=== PATIENT | female | born 1950 | race Caucasian/White ===

== ENCOUNTER → 2016-12-08 | Outpatient (CLI) | payer OTHER, MEDICARE | LOC: FIMAGING 15:23 | PROVIDERS: ATTEND Physician Assistant | DX: M79.605 Pain in left leg (principal) ==

== ENCOUNTER 2017-04-07 16:27 | Emergency (ER) | payer OTHER, MEDICARE ==
[2017-04-07 16:38] VITALS: BP 180/82; PULSE 75; RESP 16; TEMP 98.4; O2SAT 95
--- NOTE | 2017-04-07 17:12 | EDPHY ---
H & P Stated Complaint: sharp abd pain after bending over yesterday Intermittent HPI/ROS: CHIEF COMPLAINT: Right-sided abdominal pain History by patient HISTORY OF PRESENT ILLNESS: 66-year-old woman with a history of hypertension and ulcerative colitis presents complaining of pain in her right upper abdomen/ lower chest which is localized to just below her lower rib in the midclavicular line which began when she was bending over yesterday. She describes the pain as sharp and then as soon as she stood up it resolved. She has had several other episodes related to bending over. This morning she says that she has had a dull ache in her right mid back and again when she bends over she feels it on her right side anteriorly. It is not associated with any nausea, vomiting or change in stools. She has chronic diarrhea related to her ulcerative colitis but there has been no blood in it. There has been no associated fever or chills. She has been eating and drinking without difficulty and had both a normal dinner, normal breakfast and normal lunch today. Eating had no affect on the pain. She denies any trauma to the area or new activity or straining. She said she wanted to be checked out because she is leaving to go to [place] for 1 month in a couple days. She denies any urinary symptoms. She has no prior history of kidney stones. REVIEW OF SYSTEMS: As in HPI, and all other systems reviewed and are negative Source: Patient - Personal History Current Tetanus Diphtheria and Acellular Pertussis (TDAP): Yes - Medical/Surgical History Hx Asthma: No Hx Chronic Respiratory Disease: No Hx Diabetes: No Hx Cardiac Disease: No Hx Renal Disease: No Hx Cirrhosis: No Hx Alcoholism: No Hx HIV/AIDS: No Hx Splenectomy or Spleen Trauma: No Other PMH: hypothyroid. htn. ulcerative coloitis. appy. foot surg. hip replace. hyst - Social History Smoking Status: Never smoked - Physical Exam Exam: General Appearance: Alert, comfortable, well appearing. Eyes: Pupils equal and round, no pallor or injection. Mouth: Mucous membranes moist. Respiratory: Normal, effort, lungs are clear to auscultation. No wheezes, rales or rhonchi. Cardiovascular: Regular rate and rhythm. S1, S2, no murmurs, gallops or rubs appreciated Gastrointestinal: bowel sounds normal, Abdomen is soft and nondistended, localized mild tenderness on the lateral edge of the lower right ribs and area no bigger than a quarter., no masses Back: No CVA tenderness, no bony tenderness, mild lateral rib tenderness Neurological: Awake, alert and oriented x 3, no pronator drift, normal gait, no pronator drift Skin: Warm and dry, no rashes. Musculoskeletal: No deformities or tenderness. Extremities: full range of motion, no edema Psychiatric: Patient has normal affect, there is no agitation. Constitutional: Initial Vital Signs Temperature (C) 36.9 C 04/07/17 16:32 Heart Rate 75 04/07/17 16:32 Respiratory Rate 16 04/07/17 16:32 Blood Pressure 180/82 H 04/07/17 16:32 O2 Sat (%) 95 04/07/17 16:32 O2 Delivery Mode Room Air Allergies/Adverse Reactions: No Known Allergies Allergy (Verified 04/07/17 16:38) Home Medications: Medication Instructions Recorded Balsalazide Disodium [Colazal (RX)] mg PO 10/30/11 Mesalamine [[facility] Suppository 1,000 mg LA HS 04/03/12 (RX)] Amlodipine Besylate 09/20/14 Gabapentin 09/20/14 HYDROCODONE BIT/ACETAMINOPHEN 09/20/14 LEVOTHYROXINE SODIUM 09/20/14 Lisinopril 09/20/14 traZODONE 09/20/14 Baclofen 04/07/17 Medical Decision Making ED Course/Re-evaluation: 66-year-old woman presents with localized right upper quadrant tenderness and pain only when she bends. Exam is notable for very localized tenderness but no evidence of systemic toxicity. Given the fact that there are no associated GI symptoms and the patient is eating and drinking well without fever I doubt this is related to her gallbladder or other intra-abdominal pathology at this time. Urinalysis showed no evidence of blood although this is not a clean-catch patient has no urinary symptoms. I suspect abdominal wall pain and doubt serious surgical pathology. Patient was given reassurance. I am recommending conservative symptomatic treatment at home and return for re-evaluation for any worsening or new symptoms including but not limited to fever, vomiting, inability to eat or drink, persistent pain or other new concerns. Patient understands and is agreeable to this plan. - Data Points Laboratory Results: 04/07/17 17:15 Urine Color YELLOW Urine Appearance HAZY Urine pH 7.0 (5.0-7.5) Ur Specific [place] 1.010 (1.002-1.030) Urine Protein NEGATIVE (NEGATIVE) Urine Ketones NEGATIVE (NEGATIVE) Urine Blood NEGATIVE (NEGATIVE) Urine Nitrate NEGATIVE (NEGATIVE) Urine Bilirubin NEGATIVE (NEGATIVE) Urine Urobilinogen 0.2 EU EU (0.2-1.0) Ur Leukocyte Esterase 2+ H (NEGATIVE) Urine RBC OCCASIONAL /hpf /hpf (0-3) Urine WBC 15-25 /hpf H /hpf (0-3) Ur Epithelial Cells 2+ /lpf H /lpf (NONE-1+) Urine Bacteria 1+ /hpf H /hpf (NONE SEEN) Urine Mucus TRACE /lpf /lpf (NONE-1+) Urine Yeast OCCASIONAL /hpf H /hpf (NONE SEEN) Urine Glucose NEGATIVE (NEGATIVE) Departure - Departure Disposition: Home, Routine, Self-Care Clinical Impression: Abdominal wall pain in right upper quadrant Condition: Good Instructions: Musculoskeletal Pain (ED) Additional Instructions: You were seen by Dr. Lashae Hale today. Please return or be seen by her primary care physician if you develop any nausea , vomiting, loss of appetite, worsening of pain with eating or drinking, fever, severe pain or any worsening or new concerns. Referrals: Quynh Banks MD [Primary Care Provider] - As per Instructions
[2017-04-07 17:18] LABS: COLOR YELLOW; LEUKOCYTE ESTERASE,URINE 2+ (NEGATIVE); NITRITE,URINE NEGATIVE (NEGATIVE)
[2017-04-07 17:28] LABS: BACTERIA 1+ /hpf (NONE SEEN); MUCUS TRACE /lpf (NONE-1+); RBC,URINE OCCASIONAL /hpf (0-3); WBC,URINE 15-25 /hpf (0-3); YEAST OCCASIONAL /hpf (NONE SEEN)
== END 2017-04-07 17:45 | disposition home or self-care (01) ==
LOC: CED 16:27
DX: R10.11 Right upper quadrant pain (principal); I10 Essential (primary) hypertension
CPT/HCPCS: 81003-PO; 81015-PO